=== PATIENT | female | born 1965 | race Caucasian/White ===

== ENCOUNTER → 2019-06-29 12:23 | Outpatient (CLI) | payer OTHER, SELFPAY ==
--- NOTE | 2019-06-29 | DI.MG.S_ITS ---
BILATERAL DIGITAL SCREENING MAMMOGRAM 3D/2D WITH CAD: 06/29/2019 CLINICAL: Routine screening. Comparison is made to exams dated: 03/28/2018 mammogram, 01/25/2017 mammogram, and 10/25/2015 mammogram - [facility]. The tissue of both breasts is heterogeneously dense. This may lower the sensitivity of mammography. Current study was also evaluated with a Computer Aided Detection (CAD) system. No significant masses, calcifications, or other findings are seen in either breast. There has been no significant interval change. IMPRESSION: NEGATIVE There is no mammographic evidence of malignancy. A 1 year screening mammogram is recommended. This exam was interpreted at Station ID: [id number]. NOTE: For mammograms, a report in lay terms will be sent to the patient. Approximately 15% of breast malignancies will not be visualized mammographically. In the management of a palpable breast mass, a negative mammogram must not discourage biopsy of a clinically suspicious lesion. Electronically Signed By: Mariajose carter/de:06/29/2019 16:55:34 letter sent: Normal Exam ACR BI-RADS Category 1: Negative 3341F
--- NOTE | 2019-06-29 | DI.RAD.S_ITS ---
PROCEDURE: XR CHEST 2V INDICATIONS: COUGH TECHNIQUE: 2 views of the chest were acquired. COMPARISON: None. FINDINGS: Surgical changes and devices: None. Lungs and pleura: Lungs are clear. No pleural effusions or pneumothorax. Mediastinum: Mediastinal contours are normal. Heart size is normal. Bones and chest wall: No suspicious bony abnormalities. Soft tissues appear unremarkable. IMPRESSION: No acute cardiopulmonary disease. Dictated by: Alan Bowling M.D. on 06/29/2019 at 14:12 Approved by: Alan Bowling M.D. on 06/29/2019 at 14:12
== END ==
PROVIDERS: PCP Physician Assistant; Visit Provider Physician Assistant
DX: Z12.31 Encounter for screening mammogram for malignant neoplasm of breast (principal); R05 Cough
CPT/HCPCS: 71046; 77063; 77067